=== PATIENT | male | born 1995 | race Caucasian/White ===

== ENCOUNTER 2022-08-04 04:54 | Emergency (ER) | payer MEDICAID, OTHER ==
[~2022-08-04] VITALS: Ht 165.1 cm; Wt 86.1 kg
[2022-08-04 05:26] LABS: BASOPHILS % 0.4 % (0.0-2.0); EOSINOPHILS % 1.8 % (0.0-5.0); HEMATOCRIT. 42.2 % (42.0-52.0); HEMOGLOBIN. 14.3 g/dL (14.0-18.0); LYMPHOCYTES % 26.8 % (20.0-50.0); MEAN CORPUSCULAR HEMOGLOBIN 28.7 pg (28.0-32.0); MEAN CORPUSCULAR VOLUME 84.8 fL (80.0-94.0); MEAN PLATELET VOLUME 8.9 fl (7.4-10.4); MONOCYTES % 10.3 % (2.0-8.0); NEUTROPHILS % 60.7 % (40.0-76.0); PLATELET 282 x1000/uL (130-400); RED BLOOD CELL COUNT 4.98 mill/uL (4.7-6.1); RED CELL DISTRIBUTION WIDTH 13.8 % (11.6-14.6)
[2022-08-04 05:41] LABS: CHLORIDE 107 mEq/L (98-107)
[2022-08-04 05:43] LABS: CLARITY URINE CLEAR (CLEAR); COLOR URINE DARK YELLOW (YELLOW); KETONES URINE TRACE (NEGATIVE); LEUKOCYTE ESTERASE URINE NEGATIVE (NEGATIVE); NITRITE URINE NEGATIVE (NEGATIVE); OCCULT BLOOD URINE NEGATIVE (NEGATIVE); PROTEIN URINE 1+ (NEGATIVE); SPECIFIC GRAVITY URINE 1.029 (1.005-1.030)
[2022-08-04] MEDS ORDERED: PANTOPRAZOLE SODIUM 40 MG/VIAL IV ONE (07:30)
[2022-08-04] MEDS ORDERED: MAGNESIUM/ALUMINUM HYDROXIDE/SIMETHICONE 30ML UDC PO STA (07:30)
[2022-08-04] MEDS ORDERED: ONDANSETRON HCL 4MG/2ML INJ IV STA (07:30)
[2022-08-04] MEDS ORDERED: VISCOUS LIDOCAINE 2% 15 ML UDC PO STA (07:30)
[2022-08-04] MEDS ORDERED: DICYCLOMINE 10 MG/5 ML ORAL SYR PO STA (07:30)
[2022-08-04] MEDS ORDERED: OMEP40CA20 MT (07:33)
[2022-08-04] MEDS ORDERED: SUCR1TAB MT (07:33)
[2022-08-04 07:57] VITALS: BP 113/53
== END 2022-08-04 08:52 | disposition home or self-care (01) ==
LOC: ER 04:54
DX: K29.70 Gastritis, unspecified, without bleeding (principal)
CPT/HCPCS: 36415; 80053; 81003; 83690; 85025; 96374; 96375; 99284; C9113; J2405; Z7610

== ENCOUNTER 2023-12-08 23:28 | Emergency (ER) | payer MEDICAID, OTHER ==
[~2023-12-08] VITALS: Ht 165.1 cm; Wt 79.0 kg
[~2023-12-08 23:28] MED LIST: OMEP40CA20 MT; SUCR1TAB MT
[2023-12-08 23:32] VITALS: O2SAT 98
[2023-12-08 23:42] VITALS: TEMP 98.7
[2023-12-08] MEDS: ACETAMINOPHEN 325MG TABLET PO STA (23:42)
[2023-12-08] MEDS: ONDANSETRON 4MG ODT PO STA (23:42)
[2023-12-08 23:58] LABS: HEMOGLOBIN. 14.2 g/dL (14.0-18.0); MEAN CORPUSCULAR HEMOGLOBIN 29.5 pg (28.0-32.0); MEAN CORPUSCULAR HGB CONC 34.5 g/dL (31.0-37.0); MEAN CORPUSCULAR VOLUME 85.4 fL (80.0-94.0); MEAN PLATELET VOLUME 8.6 fl (7.4-10.4); PLATELET 273 x1000/uL (130-400); RED BLOOD CELL COUNT 4.81 mill/uL (4.7-6.1); RED CELL DISTRIBUTION WIDTH 13.6 % (11.6-14.6)
[2023-12-09] LABS: DIFFERENTIAL COMMENT 1
[2023-12-09 00:02] LABS: CARBON DIOXIDE 22 mEq/L (21-32); CHLORIDE 108 mEq/L (98-107); POTASSIUM 3.4 mEq/L (3.5-5.1); SODIUM 139 mEq/L (136-145)
[2023-12-09 00:07] LABS: CREATININE 0.9 mg/dL (0.6-1.3)
[2023-12-09 00:08] LABS: GLUCOSE 149 mg/dL (70-105); UREA NITROGEN BLOOD 13 mg/dL (9-23)
[2023-12-09 00:09] LABS: ALANINE AMINOTRANSFERASE 14 IU/L (10-49); ALBUMIN 4.9 g/dL (3.2-4.8); ASPARTATE AMINOTRANSFERASE 12 IU/L (<34)
[2023-12-09 00:10] LABS: BILIRUBIN DIRECT 0.1 mg/dL (<=3.0); BILIRUBIN TOTAL 0.5 mg/dL (0.1-1.0); PROTEIN TOTAL 7.6 g/dL (6.0-8.3)
[2023-12-09 00:42] LABS: PLATELET ESTIMATE NORMAL
[2023-12-09] MEDS ORDERED: ONDA4TAB50 MT (05:52)
[2023-12-09 05:56] VITALS: BP 126/76; PULSE 78; RESP 16
== END 2023-12-09 06:04 | disposition home or self-care (01) ==
LOC: ER 23:28
DX: K29.70 Gastritis, unspecified, without bleeding (principal); K21.9 Gastro-esophageal reflux disease without esophagitis; F12.10 Cannabis abuse, uncomplicated
CPT/HCPCS: 99284; 80076; 80048; 83690; 85025; 36415; 74176; Q0162